=== PATIENT | female | born 1995 ===

== ENCOUNTER 2021-04-10 18:37 | Emergency (ER) | payer OTHER ==
[~2021-04-10] VITALS: Ht 167.6 cm; Wt 62.6 kg
== END 2021-04-10 21:29 | disposition home or self-care (01) ==
LOC: ER 18:37
DX: S00.33XA Contusion of nose, initial encounter (principal); R04.0 Epistaxis; X58.XXXA Exposure to other specified factors, initial encounter; Y93.89 Activity, other specified; Y92.89 Other specified places as the place of occurrence of the external cause; Y99.8 Other external cause status